=== PATIENT | male | born 1955 | race Caucasian/White ===

== ENCOUNTER → 2017-07-20 | Outpatient (REF) | payer BC ==
[2017-07-20 16:51] LABS: CARBOXYHEMOGLOBIN 1.7 % (0.0-1.5)
[2017-07-20 16:51] LABS: REASON FOR REVIEW OTHER; SLIDE REVIEW Report; SOURCE PERIPHERAL SMEAR
[2017-07-20 17:03] LABS: FERRITIN 575 NG/ML (26-388); IRON (FE) 172 UG/DL (65-175); PERCENT SATURATION 73.2 % (19.7-50.0); TOTAL IRON BINDING CAPACITY 235 UG/DL (250-450)
== END ==
LOC: M LAB REF 16:15
DX: D75.1 Secondary polycythemia (principal)

== ENCOUNTER → 2017-11-02 | Outpatient (REF) | payer BC ==
[2017-11-03 11:04] LABS: FERRITIN 369 NG/ML (26-388); IRON (FE) 183 UG/DL (65-175); PERCENT SATURATION 71.5 % (19.7-50.0); TOTAL IRON BINDING CAPACITY 256 UG/DL (250-450)
== END ==
LOC: M LAB REF 09:56
DX: D75.0 Familial erythrocytosis (principal)
CPT/HCPCS: 83550

== ENCOUNTER → 2017-12-29 | Outpatient (REF) | payer BC ==
[2017-12-29 17:53] LABS: FERRITIN 245 NG/ML (26-388); IRON (FE) 138 UG/DL (65-175); PERCENT SATURATION 54.8 % (19.7-50.0); TOTAL IRON BINDING CAPACITY 252 UG/DL (250-450)
== END ==
LOC: M LAB REF 17:22
DX: D75.0 Familial erythrocytosis (principal)
CPT/HCPCS: 83550

== ENCOUNTER → 2018-04-04 | Outpatient (CLI) | payer BC | LOC: M CARPUL 10:01 | DX: E83.119 Hemochromatosis, unspecified (principal); D75.1 Secondary polycythemia | CPT/HCPCS: 93306 ==

== ENCOUNTER → 2018-04-04 | Outpatient (CLI) | payer BC | LOC: M RAD 07:13 | DX: D75.1 Secondary polycythemia (principal); E83.119 Hemochromatosis, unspecified | CPT/HCPCS: 71046 ==

== ENCOUNTER → 2018-05-01 | Outpatient (CLI) | payer BC | LOC: M SLEEP HO 10:46 | DX: G47.33 Obstructive sleep apnea (adult) (pediatric) (principal) | CPT/HCPCS: G0399 ==

== ENCOUNTER 2019-05-18 07:59 | Day surgery (SDC) | payer MEDICARE ==
[~2019-05-18] VITALS: Ht 185.4 cm; Wt 99.8 kg
[~2019-05-18 07:59] MED LIST: ASPI81TA26 PO; D 50CAP3 PO; FLON1SPR NARES; FOLI800C PO; LORA-581 PO; LOSA100T50 PO; LOSA50TA88 PO; VALS1TAB66 PO; VITA500S3 SL; [UNRECOGNIZED DRUG - CODE] PO; [UNRECOGNIZED DRUG - CODE] SL
[2019-05-18] MEDS ORDERED: PROPOFOL 200 MG/20 ML VIAL As Ordered ONE ×2 (08:58→08:59)
[2019-05-18] MEDS ORDERED: LIDOCAINE 2% INJ 100 MG/5 ML SDV (FOR ANES.) As Ordered ONE (08:59)
--- NOTE | 2019-05-18 09:07 | ROOR ---
Patient Name: Derrick Latham Procedure Date: 05/18/2019 8:42 AM Date of : 1955 Age: 63 Room: [facility] Gender: Male Note Status: Finalized Procedure: Colonoscopy Indications: High risk colon cancer surveillance: Personal history of colonic polyps, Last colonoscopy: February 2014 Providers: Scott GAUTHIER MD Referring MD: KAIA SINGER MD Requesting Provider: Medicines: Monitored Anesthesia Care Complications: No immediate complications. Procedure: Pre-Anesthesia Assessment: - The heart rate, respiratory rate, oxygen saturations, blood pressure, adequacy of pulmonary ventilation, and response to care were monitored throughout the procedure. The Colonoscope was introduced through the anus and advanced to the terminal ileum, with identification of the appendiceal orifice and IC valve. The colonoscopy was performed without difficulty. The patient tolerated the procedure well. The quality of the bowel preparation was good. Findings: The perianal and digital rectal examinations were normal. A 4 mm polyp was found in the ascending colon. The polyp was sessile. The polyp was removed with a cold snare. Resection and retrieval were complete. The exam was otherwise without abnormality on direct and retroflexion views. Impression: - One 4 mm polyp in the ascending colon, removed with a cold snare. Resected and retrieved. - The examination was otherwise normal on direct and retroflexion views. Recommendation: - Telephone endoscopist for pathology results in 2 weeks. - Await pathology results. - If the pathology report reveals adenomatous tissue, then repeat the colonoscopy for surveillance in 5 years. - If the pathology report reveals no adenomatous tissue, then repeat the colonoscopy for screening purposes in 10 years. Scott Gauthier MD Scott GAUTHIER MD 05/18/2019 9:07:12 AM Electronically signed by Scott GAUTHIER MD Number of Addenda: 0 Note Initiated On: 05/18/2019 8:42 AM Estimated Blood Loss: Estimated blood loss: none.
[2019-05-18 09:30] VITALS: BP 130/84
== END 2019-05-18 09:33 | disposition home or self-care (01) ==
LOC: M OPP 07:59
PROVIDERS: ATTEND Internal Medicine Gastroenterology
DX: Z12.11 Encounter for screening for malignant neoplasm of colon (principal); Z86.010 Personal history of colon polyps; D12.2 Benign neoplasm of ascending colon; Z79.82 Long term (current) use of aspirin; Z79.899 Other long term (current) drug therapy

== ENCOUNTER → 2019-10-01 | Outpatient (CLI) | payer MEDICARE ==
[~2019-10-01] MED LIST changes: +VENTAER INH
--- NOTE | 2019-10-01 13:01 | REP ---
REASON FOR EXAM: Hypertension. PRIORS: None. After the intravenous administration of 8.8 mCi of technetium 99m MAG-3, a renal flow and scan was obtained. The renal flow portion of the examination shows prompt visualization of the kidneys within two frames of visualizing the aorta. Dynamic renal scintigraphy shows excellent washout characteristics of each kidney with near complete washout on the last frame. Pre- and postvoid scintigraphy shows no change in the appearance of the activity which is normally low. Analysis of the functional curves shows [id number] activity left kidney less than 1 minute and [id number]-eb-[id number] activity right kidney 2 minutes. The t1/2 value left kidney is 6-1/2 minutes and right kidney 8-1/2 minutes. Split differential analysis shows 57.9% of the counts coming from the left kidney and 42.1% of the counts coming from the right kidney. Evaluation of count density data shows it to be within normal limits bilaterally. IMPRESSION: Normal renal flow and scan parameters, as described above. Electronically Signed by Cesario Peralta DO 10/01/2019 02:01 P
== END ==
LOC: M RAD 09:44
PROVIDERS: ATTEND Internal Medicine Nephrology
DX: I15.0 Renovascular hypertension (principal)
CPT/HCPCS: 78707; A9562

== ENCOUNTER 2024-05-10 06:49 | Day surgery (SDC) | payer MEDICARE ==
[~2024-05-10] VITALS: Ht 185.4 cm; Wt 102.2 kg
[~2024-05-10 06:49] MED LIST changes: +ACET-897 PO; +BREO1INH INH; +BREO1INH3 INH; +COVI30VI IM; +LOSA100T46 PO; -LOSA100T50 PO; +LOSA50TA28 PO; -LOSA50TA88 PO; +ROSU5TAB49 PO; +SYMB16INH INH; +TAMS1CAP17 PO; +TUME1CAP PO; +VITALIQ27 PO
[2024-05-10] MEDS ORDERED: LIDOCAINE 2% 100MG/5ML SDV (FOR ANES.) As Ordered ONE (07:48)
[2024-05-10] MEDS ORDERED: propofoL 200 MG/20 ML VIAL As Ordered ONE (07:48)
[2024-05-10] MEDS ORDERED: ePHEDrine SULFATE 25 MG/5 ML(5MG/ML) SYRINGE As Ordered ONE (07:52)
[2024-05-10] MEDS ORDERED: PHENYLephrine 500MCG 5ML (100MCG/ML) SYRINGE As Ordered ONE (07:58)
[2024-05-10 08:44] VITALS: TEMP 97.9
[2024-05-10 09:09] VITALS: BP 103/70; O2SAT 96
== END 2024-05-10 09:10 | disposition home or self-care (01) ==
LOC: M OPP 06:49
PROVIDERS: ATTEND Internal Medicine Gastroenterology
DX: Z12.11 Encounter for screening for malignant neoplasm of colon (principal); K57.30 Diverticulosis of large intestine without perforation or abscess without bleeding; K64.8 Other hemorrhoids; Z86.0100 Personal history of colon polyps, unspecified; I10 Essential (primary) hypertension; E83.119 Hemochromatosis, unspecified; N40.0 Benign prostatic hyperplasia without lower urinary tract symptoms; J45.909 Unspecified asthma, uncomplicated; Z79.899 Other long term (current) drug therapy; Z79.51 Long term (current) use of inhaled steroids; Z90.89 Acquired absence of other organs
CPT/HCPCS: G0105; J2371